=== PATIENT | male | born 1960 | race Caucasian/White ===

== ENCOUNTER 2020-04-17 04:38 | Day surgery (SDC) | payer OTHER ==
[2020-04-16 14:31] VITALS: BMI 36.5
[2020-04-17] MEDS ORDERED: ROPIVACAINE HCL 0.5% 30ML VIAL ONE (12:09)
[2020-04-17] MEDS ORDERED: MIDAZOLAM HCL 2 MG/2 ML SINGLE DOSE VIAL ONE ×3 (12:10→14:19)
[2020-04-17] MEDS ORDERED: ONDANSETRON 4 MG/2 ML VIAL IVPUSH PRN (12:42)
[2020-04-17] MEDS ORDERED: oxyCODONE HCL 5 MG TABLET PO PRN (12:42)
[2020-04-17] MEDS ORDERED: LACTATED RINGERS SOLUTION 1,000 ML IV SCH (12:45)
[2020-04-17] MEDS ORDERED: PROMETHAZINE HCL 25 MG/1 ML VIAL IVPUSH PRN (12:48)
[2020-04-17] MEDS ORDERED: PROPOFOL 20 ML ONE ×2 (14:19→14:29)
[2020-04-17] MEDS ORDERED: ceFAZolin SODIUM 1 GM VIAL ONE ×2 (14:20→17:01)
[2020-04-17] MEDS ORDERED: LIDOCAINE HCL/PF 2% SDV 5ML VIAL ONE (14:29)
[2020-04-17] MEDS ORDERED: ceFAZolin 2 GRAM PREMIX BAG IVPB ONE (14:37)
[2020-04-17] MEDS ORDERED: ceFAZolin 2 GRAM PREMIX BAG IVPB SCH (18:00)
[2020-04-17 18:37] VITALS: TEMP 97
[2020-04-17 18:41] VITALS: BP 130/80; PULSE 70
== END 2020-04-17 18:35 | disposition home or self-care (01) ==
LOC: JASU-SURG 04:38
PROVIDERS: ATTEND Orthopaedic Surgery
PROC: 0RNK4ZZ Release Left Shoulder Joint, Percutaneous Endoscopic Approach (ICD-10-PCS; 2020-04-17)
PROC: 0LQ24ZZ Repair Left Shoulder Tendon, Percutaneous Endoscopic Approach (ICD-10-PCS; principal; 2020-04-17 13:00)
PROC: 0LU24JZ Supplement Left Shoulder Tendon with Synthetic Substitute, Percutaneous Endoscopic Approach (ICD-10-PCS; 2020-04-17 13:00)
DX: M75.42 Impingement syndrome of left shoulder (principal); M75.102 Unspecified rotator cuff tear or rupture of left shoulder, not specified as traumatic
CPT/HCPCS: 82962; 88304-TC; 94760